=== PATIENT | male | born 1955 | race Caucasian/White ===

== ENCOUNTER → 2018-07-06 | Outpatient (CLI) | payer MEDICARE | LOC: M LRY 11:51 | DX: R10.9 Unspecified abdominal pain (principal); E78.2 Mixed hyperlipidemia; I10 Essential (primary) hypertension; R31.9 Hematuria, unspecified | CPT/HCPCS: 80053 ==

== ENCOUNTER → 2018-07-06 | Outpatient (REF) | payer MEDICARE ==
[2018-07-06 17:26] LABS: APPEARANCE, URINE CLEAR (CLEAR); BACTERIA, URINE AUTO NEGATIVE (NEGATIVE); BILIRUBIN, URINE AUTO NEGATIVE (NEGATIVE); BLOOD, URINE BLOOD NEGATIVE (NEGATIVE); COLOR, URINE YELLOW (YELLOW); GLUCOSE, URINE (UA) AUTO NEGATIVE (NEGATIVE); KETONE, URINE AUTO NEGATIVE (NEGATIVE); LEUKOCYTE ESTERASE, URINE AUTO NEGATIVE (NEGATIVE); NITRITE, URINE AUTO NEGATIVE (NEGATIVE); PROTEIN, URINE AUTO NEGATIVE (NEGATIVE); RBC, URINE AUTO 1 /HPF (0-3); SPECIFIC GRAVITY URINE AUTO 1.025 (1.002-1.035); SQUAMOUS EPITHELIAL CELL UR AU 0 /HPF (0-6); UROBILINOGEN, URINE AUTO 0.2 mg/dL (0.0-2.0); WBC, URINE AUTO 0 /HPF (0-3)
[2018-07-06 17:35] LABS: ALBUMIN 4.2 GM/DL (3.2-5.2); ALBUMIN/GLOBULIN RATIO 1.31 (1.00-1.93); ALKALINE PHOSPHATASE 55 U/L (45-117); ALT/SGPT 26 U/L (12-78); ANION GAP 7 MEQ/L (8-16); AST/SGOT 20 U/L (7-37); BILIRUBIN,TOTAL 0.4 MG/DL (0.2-1.0); BLOOD UREA NITROGEN 17 MG/DL (7-18); CARBON DIOXIDE LEVEL 28 MEQ/L (21-32); CHLORIDE LEVEL 105 MEQ/L (98-107); CHOLESTEROL LEVEL 319 MG/DL (<200); CHOLESTEROL RISK RATIO 8.621 (<5); CREATININE FOR GFR 1.22 MG/DL (0.70-1.30); GLOMERULAR FILTRATION RATE > 60.0 (>49); GLUCOSE, FASTING 96 MG/DL (70-100); HDL CHOLESTEROL 37 MG/DL (>40); LDL CHOLESTEROL 229 MG/DL (<100); NON-HDL-C 282 MG/DL; PSA SCREENING 1.22 NG/ML (< 4.0); SODIUM LEVEL 140 MEQ/L (136-145); TOTAL PROTEIN 7.4 GM/DL (6.4-8.2); TRIGLYCERIDES LEVEL 263 MG/DL (<150)
== END ==
LOC: M SFHCLERA 11:57
DX: E78.2 Mixed hyperlipidemia (principal); I10 Essential (primary) hypertension; R31.9 Hematuria, unspecified

== ENCOUNTER → 2018-07-14 | Outpatient (REF) | payer MEDICARE ==
[2018-07-14 16:22] LABS: BASO % 0.6 % (0.0-1.0); EOS # 0.2 10^3/uL (0.0-0.50); EOS % 4.8 % (0.0-3.0); HEMATOCRIT 41.4 % (42.0-52.0); HEMOGLOBIN 13.6 g/dl (13.5-17.5); IMMATURE GRANULOCYTE % 0.2 % (0-3.0); LYMPH # 1.6 10^3/uL (1.5-4.5); LYMPH % 31.9 % (24.0-44.0); MEAN CORPUSCULAR HEMOGLOBIN 30.6 pg (27.0-33.0); MEAN CORPUSCULAR HGB CONC 32.9 g/dl (32.0-36.5); MEAN CORPUSCULAR VOLUME 93.2 fl (80.0-96.0); MONO # 0.3 10^3/uL (0.0-0.8); MONO % 6.5 % (0.0-5.0); NEUTROPHILS # 2.8 10^3/uL (1.8-7.7); PLATELET COUNT, AUTOMATED 210 10^3/uL (150-450); RED BLOOD COUNT 4.44 10^6/uL (4.30-6.10); RED CELL DISTRIBUTION WIDTH 13.8 % (11.5-14.5); WHITE BLOOD COUNT 5.1 10^3/uL (4.0-10.0)
[2018-07-14 16:49] LABS: C REACTIVE PROTEIN QUANTITATIV 0.36 MG/DL (0.00-0.30)
[2018-07-14 17:16] LABS: ERYTHROCYTE SEDIMENTATION RATE 10 mm/hr (0-20)
[2018-07-16 14:23] LABS: Lyme Disease IgG/IgM Antibodie <0.91 ISR (0.00-0.90); Lyme Disease IgM Ab Quantitati <0.80 index (0.00-0.79)
== END ==
LOC: M SFHCLERA 11:25
DX: M25.50 Pain in unspecified joint (principal)
CPT/HCPCS: 86140

== ENCOUNTER → 2018-07-20 | Outpatient (CLI) | payer MEDICARE ==
[~2018-07-20] MED LIST: GASTROGRAFIN SOLUTION 30ML (Q9963) As Ordered; ISOVUE-370 76% 100ML VIAL (Q9967) As Ordered
== END ==
LOC: M RAD 14:13
DX: R10.30 Lower abdominal pain, unspecified (principal); K57.30 Diverticulosis of large intestine without perforation or abscess without bleeding
CPT/HCPCS: Q9963

== ENCOUNTER → 2018-08-23 | Outpatient (CLI) | payer MEDICARE | LOC: M RAD 10:38 | DX: K40.90 Unilateral inguinal hernia, without obstruction or gangrene, not specified as recurrent (principal) | CPT/HCPCS: 76857 ==

== ENCOUNTER 2018-08-30 06:29 | Day surgery (SDC) | payer MEDICARE ==
[2018-08-30] MEDS: NS 1,000 ML IV (07:02)
[2018-08-30] MEDS ORDERED: PROPOFOL 200 MG/20 ML VIAL As Ordered ×2 (07:08→07:52)
[2018-08-30] MEDS ORDERED: LIDOCAINE 2% INJ 100 MG/5 ML SDV (FOR ANES.) As Ordered (07:11)
[2018-08-30] MEDS ORDERED: PHENYLephrine HCL 500 MCG/5 ML (100MCG/ML) SYRINGE (J2370) As Ordered (07:36)
== END 2018-08-30 08:44 | disposition home or self-care (01) ==
LOC: M OPP 06:29
DX: Z12.11 Encounter for screening for malignant neoplasm of colon (principal); D12.2 Benign neoplasm of ascending colon; D12.3 Benign neoplasm of transverse colon; D12.7 Benign neoplasm of rectosigmoid junction; K57.30 Diverticulosis of large intestine without perforation or abscess without bleeding; K64.8 Other hemorrhoids
CPT/HCPCS: 45385

== ENCOUNTER 2018-11-11 13:10 | Emergency (ER) | payer MEDICARE ==
[~2018-11-11] VITALS: Ht 170.2 cm; Wt 88.6 kg
[~2018-11-11 13:10] MED LIST changes: +ACET1TAB55 PO; +ASPI1TAB PO; -GASTROGRAFIN SOLUTION 30ML (Q9963) As Ordered; +IBUPOTC PO; -ISOVUE-370 76% 100ML VIAL (Q9967) As Ordered; +METO25TA4 PO
[2018-11-11] MEDS ORDERED: NITR0.4S14 SL (13:29)
[2018-11-11 13:57] LABS: BASO % 0.4 % (0.0-1.0); EOS # 0.2 10^3/uL (0.0-0.50); EOS % 1.6 % (0.0-3.0); HEMATOCRIT 39.3 % (42.0-52.0); HEMOGLOBIN 13.2 g/dl (13.5-17.5); LYMPH # 1.9 10^3/uL (1.5-4.5); LYMPH % 20.4 % (24.0-44.0); MEAN CORPUSCULAR HEMOGLOBIN 30.9 pg (27.0-33.0); MEAN CORPUSCULAR HGB CONC 33.6 g/dl (32.0-36.5); MONO # 0.6 10^3/uL (0.0-0.8); MONO % 6.2 % (0.0-5.0); NEUTROPHILS # 6.5 10^3/uL (1.8-7.7); PLATELET COUNT, AUTOMATED 279 10^3/uL (150-450); RED BLOOD COUNT 4.27 10^6/uL (4.30-6.10); WHITE BLOOD COUNT 9.2 10^3/uL (4.0-10.0)
[2018-11-11 14:27] LABS: ALBUMIN 3.8 GM/DL (3.2-5.2); ALT/SGPT 31 U/L (12-78); BILIRUBIN,DIRECT 0.1 MG/DL (0.0-0.2); BILIRUBIN,TOTAL 0.3 MG/DL (0.2-1.0); BLOOD UREA NITROGEN 12 MG/DL (7-18); CALCIUM LEVEL 8.9 MG/DL (8.8-10.2); CARBON DIOXIDE LEVEL 27 MEQ/L (21-32); CHLORIDE LEVEL 101 MEQ/L (98-107); CPK CREATINE PHOSPHOKINASE 590 U/L (39-308); GLOMERULAR FILTRATION RATE > 60.0 (>49); GLUCOSE, FASTING 110 MG/DL (70-100); LIPASE 98 U/L (73-393); MB/CK RELATIVE INDEX 7.24 (< OR =4); POTASSIUM SERUM 3.8 MEQ/L (3.5-5.1); SODIUM LEVEL 135 MEQ/L (136-145); TOTAL PROTEIN 8.1 GM/DL (6.4-8.2); TROPONIN I 5.18 NG/ML (< 0.10)
--- NOTE | 2018-11-11 14:48 | REP ---
Chest one-view HISTORY: chest pain Comparison: None Linear density is present in the left lower lobe consistent with scar. The right lung is clear. The heart is normal in size. The pulmonary vasculature is normal in appearance. Impression: No acute disease. Electronically Signed by Sunil Khan MD 11/11/2018 02:39 P
[2018-11-11] MEDS ORDERED: HEPARIN SOD (PORCINE) 5000 UNITS/ML VIAL IV ONE (15:00)
[2018-11-11] MEDS ORDERED: CLOPIDOGREL 300 MG TAB (PLAVIX) PO ONE (15:00)
[2018-11-11] MEDS ORDERED: HEPARIN DRIP 25,000 UNITS in APPROPRIATE DILUENT 1 EA IV SCH (15:00)
[2018-11-11 15:06] LABS: INR 1.06; PROTHROMBIN TIME 13.9 SECONDS (12.1-14.4)
[2018-11-11 15:07] LABS: PARTIAL THROMBOPLASTIN TIME 38.2 SECONDS (25.4-37.6)
[2018-11-11 16:29] VITALS: BP 146/82
--- NOTE | 2018-11-13 08:59 | ECGEPIP ---
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
== END 2018-11-11 16:30 | disposition short-term general hospital (02) ==
LOC: M ED 13:10
DX: I21.4 Non-ST elevation (NSTEMI) myocardial infarction (principal); E03.9 Hypothyroidism, unspecified; I44.4 Left anterior fascicular block; I25.10 Atherosclerotic heart disease of native coronary artery without angina pectoris; I25.2 Old myocardial infarction; I10 Essential (primary) hypertension; E78.5 Hyperlipidemia, unspecified; Z98.890 Other specified postprocedural states; Z88.0 Allergy status to penicillin; Z88.1 Allergy status to other antibiotic agents; Z88.2 Allergy status to sulfonamides; Z79.899 Other long term (current) drug therapy

== ENCOUNTER → 2018-12-16 | Outpatient (CLI) | payer MEDICARE ==
[~2018-12-16] MED LIST changes: +NITR0.4S14 SL
--- NOTE | 2018-12-19 14:03 | REP ---
BODY RADIONUCLIDE BONE SCAN: HISTORY: Abnormal bone formation. Comparison CT study is from November 17, 2018. This was read as showing a calcific density in the right iliac bone. TECHNIQUE: 22.0 mCi technetium 99m MDP is injected and standard whole body bone scan imaging is acquired. SCINTIGRAPHIC FINDINGS: There is increased uptake noted throughout the sternum and manubrium compatible with post sternotomy changes. There is a mildly increased uptake focus in the left anterior 2nd rib. Mild degenerative uptake is seen bilaterally in the AC joints. There is mild arthritic uptake bilaterally in the knees. There is no abnormal uptake in either iliac bone. The lesion seen on CT images is compatible with a benign bone island. IMPRESSION: Increased uptake in the sternum consistent with prior sternotomy. This is apparently quite recent in that the chest x-ray from November 11, 2018 did not show sternotomy wires although they are placed by the time of the CT abdomen from November 17, 2018. A focus of increased uptake in the 2nd rib on the left may be postoperative as well. There is no abnormal iliac bone uptake. Electronically Signed by Mejia Velásquez MD 12/19/2018 03:20 P
== END ==
LOC: M RAD 10:42
PROVIDERS: ATTEND Family Medicine
DX: Z98.890 Other specified postprocedural states (principal)
CPT/HCPCS: 78306; A9503

== ENCOUNTER → 2019-01-17 | Outpatient (CLI) | payer MEDICARE ==
[2019-01-17 11:39] LABS: CHOLESTEROL RISK RATIO 3.78 (<5)
== END ==
LOC: M LAB 10:37
PROVIDERS: ATTEND Internal Medicine Interventional Cardiology
DX: I10 Essential (primary) hypertension (principal)